=== PATIENT | female | born 1945 | race Caucasian/White ===

== ENCOUNTER 2017-02-28 14:18 | Inpatient (IN) | payer MEDICARE, OTHER ==
[~2017-02-28] VITALS: Ht 157.5 cm; Wt 63.6 kg
[2017-02-28] VITALS (10 sets, daily range): BP systolic 87–105; BP diastolic 52–83
[2017-02-28] MEDS ORDERED: DILTIAZEM DRIP 100 MG in SODIUM CHLORIDE (ADD-VANTAGE) 100 ML IV SCH (16:45)
[2017-02-28] MEDS ORDERED: CATHETER FLUSH 10 ML SYR IV PRN (17:00)
[2017-02-28] MEDS ORDERED: AMIODARONE FOR BOLUS 150 MG in D5W 100 ML IVPB 100 ML IV NR (17:30)
[2017-02-28] MEDS: AMIODARONE IV SOLUTION 200 ML IV SCH ×2 (17:48→23:56)
[2017-02-28] MEDS: CATHETER FLUSH 10 ML SYR IV SCH (22:20)
[2017-02-28] MEDS ORDERED: D5W 100 ML IVPB 100 ML IV ONE (23:13)
[2017-02-28] MEDS ORDERED: AMIODARONE 150 MG/3 ML (CORDARONE) AMP IV ONE (23:13)
[2017-02-28] MEDS ORDERED: AMIODARONE FOR BOLUS 150 MG in D5W 100 ML IVPB 100 ML IV ONE (23:15)
[2017-02-28] MEDS ORDERED: NS IV 1000 ML 1,000 ML IV ONE (23:15)
--- NOTE | 2017-02-28 23:26 | Consultation-Cardiology ---
HPI-Cardiology Cardiology Consultation: Date of Consultation 02/28/17 Date of Admission Attending Physician Mehreen Vanegas DO Admitting Physician Daily Mcneill MD Consulting Physician Alan BARFIELD MD HPI: Chief Complaint: atrial fibrillation This is a 71 year old patient who was transferred from [facility] by Dr Mcneill. She has history of small cell lung cancer s/p radiation and chemo treatment in the past to the chest. She presented with palpitations. She was found to be in atrial fibrillation. She was given a dose of cardizem which resulted in significant improvement of heart rate however the patient went back into AF within 30-40 minutes. She was transferred to our hospital for further management. Review of Systems-Cardiology Review of Systems Constitutional: No As described under HPI, No no symptoms reported, No chills, No fever, No lightheadedness, No malaise, No tiredness, No weight loss, No weight gain, No other Eyes: No As described under HPI, No no symptoms reported, No blindness, No blurred vision, No contact lenses, No drainage, No decreased acuity, No foreign body sensation, No glasses, No inflammation, No pain, No photophobia, No previous injury, No shadows, No tunnel vision, No other, No vision change Ears/Nose/Throat: No As described under HPI, No no symptoms reported, No chronic hearing loss, No epistaxis, No ear discharge, No ear pain, No loose teeth, No mouth pain, No mouth swelling, No nasal drainage, No nose pain, No recent hearing loss, No throat pain, No throat swelling, No ulcerations, No other Respiratory: No no symptoms reported, No As described under HPI, No cough, No orthopnea, No shortness of breath, No SOB with excertion, No SOB at rest, No stridor, No wheezing, No other Cardiovascular: irregular heart rate, palpitations Gastrointestinal: No no symptoms reported, No As described under HPI, No abdomen distended, No abdominal pain, No blood streaked bowels, No constipation , No diarrhea, No difficulty swallowing, No nausea, No poor appetite, No poor fluid intake, No rectal bleeding, No vomiting, No other, No nausea/vomiting/ diarrhea, No stool coloration changes Genitourinary: No no symptoms reported, No As described under HPI, No burning, No dysuria, No discharge, No frequency, No flank pain, No hematuria, No incontinence, No pain, No urgency, No other, No urine frequency changes, No urine coloration changes Musculoskeletal: No no symptoms reported, No As describe under HPI, No back pain, No gout, No joint pain, No joint swelling, No muscle pain, No muscle stiffness, No neck pain, No other Skin: No no symptoms reported, No As described under HPI, No change in color, No change in hair/nails, No dryness, No lesions, No lumps, No rash, No other, No skin related problems, No ulcerations, No rash on exposed areas, No ulcerations on exposed areas Psychiatric/Neurological: No As described under HPI, No anxiety, No depression , No emotional problems, No focal weakness, No headache, No no symptoms reported , No numbness, No other, No pre-existing deficit, No seizure, No syncope, No tingling, No tremors, No weakness CTL-Jweqyv-Ctyctw Hx Patient Social History Alcohol Use: Denies Use Recreational Drug Use: No Smoking Status: Unknown if Ever Smoked Recent Foreign Travel: No Recent Infectious Disease Expo: No Hospitalization with Isolation: Denies Physical Abuse Screen: No Sexual Abuse: No Past Medical History PMH As described under Assessment. Family Medical History Family History: Patient reports no known family medical history. Allergies and Home Medications Allergies Coded Allergies: Penicillins (Verified Allergy, Unknown, 02/28/17) acetaminophen (Verified Allergy, Unknown, 02/28/17) adhesive tape (Verified Allergy, Unknown, 02/28/17) aspirin (Verified Allergy, Unknown, 02/28/17) banana (Verified Allergy, Unknown, 02/28/17) caffeine (Verified Allergy, Unknown, 02/28/17) milk (Verified Allergy, Unknown, 02/28/17) promethazine (Verified Allergy, Unknown, 02/28/17) Physical Exam-Cardiology Physical Exam Vital Signs/I&O Vital Sign - Last 12Hours 02/28/17 02/28/17 02/28/17 02/28/17 15:30 15:45 16:45 17:10 Temp 96.9 96.9 Pulse 140 140 142 Resp 16 10 16 B/P (MAP) 90/52 105/83 99/65 100/76 Pulse Ox 96 97 97 O2 Delivery Room Air Room Air 02/28/17 02/28/17 02/28/17 17:45 18:00 20:00 Pulse 142 88 Resp 16 13 B/P (MAP) 97/70 87/58 Pulse Ox 97 97 O2 Delivery Room Air Room Air Capillary Refill : Constitutional: No appears stated age, No AAO x 3, No apparent distress, No PERRL, No well-developed, No well-nourished, No other HEENT: No PERRL, No normal ENT inspection, No TMs normal, No pharynx normal, No scleral icterus (R), No scleral icterus (L), No pale conjunctivae (R), No pale conjunctivae (L), No photophobia, No TM abnormal (R), No TM abnormal (L), No pharyngeal erythema, No tonsillar exudate, No other, No discharge, No EOMI, No hearing is well preserved, No hard of hearing, No oral hygience is good, No ulceration, No xanthelasmas are seen Neck: No non-tender, No full range of motion, No supple, No normal inspection, No carotid bruit, No limited range of motion, No lymphadenopathy (R), No lymphadenopathy (L), No tender lateral, No tender midline, No thyromegaly, No other, No carotid pulses are 2 + bilaterally, No with good upstrokes Respiratory: No accessory muscle use, No respiratory distress, No chest tender , No chest expansion is symmetric, No chest is bilaterally symmetric, No lungs clear to percussion, No lungs clear to auscultation, No crackles, No rhonchi, No rales, No stridor, No wheezing, No pleural rub, No other Cardiovascular: irregularly irregular, tachycardia, S1 and S2 Gastrointestinal: No tender, No soft, No round, No distended, No pulsatile mass , No organomegaly, No guarding, No rebound, No tenderness, No hernia, No mass, No audible bowel sounds, No abnormal bowel sounds, No abdominal bruits, No spleenomegaly, No other Rectal: deferred Extremities: No normal range of motion, No non-tender, No normal inspection, No pedal edema, No calf tenderness, No normal capillary refill, No pelvis stable , No calf tenderness, No inflammation, No pedal edema, No slow capillary refill , No swelling, No other, No abrasion, No clubbing, No cyanosis, No ecchymosis, No laceration, No no lower extremity edema bilateral, No significant edema, No tenderness, No wound Neurologic/Psychiatric: No perforator operator oil well II-XII nml as tested, No no motor/sensory deficits, No alert, No normal mood/affect, No oriented x 3, No abnormal cerebellar tests, No abnormal perforator operator oil well II-XII, No abnormal gait, No aphasia, No EOM palsy, No facial droop, No motor weakness, No sensory deficit, No depressed affect, No disoriented x 3, No other, No grossly intact, No power is 5/5 both on sides Skin: No normal color, No warm/dry, No cyanosis, No cool, No diaphoresis, No damp, No ecchymosis, No jaundice, No mottled, No pallor, No rash, No tattoos/ piercings, No ulcerations, No rash on exposed areas, No ulcerations on exposed areas, No other ECG Impression ECG Initial ECG Impression: Atrial Fibrillation w/RVR A/P-Cardiology Assessment/Admission Diagnosis atrial fibrillation, small cell cancer Plan IV amiodarone infusion overnight. KIRSTIN has higher risk since patients can have radiation esophagitis the risk of esophageal complications is higher. Anticoagulation is recommended. if the patient does not convert with amiodarone infusion , then will consider KIRSTIN and cardioversion. Thank you for your consultation. Please call me if you have any questions. Tirso Barfield MD, FACP, FACC, FSCAI, FHRS, CCDS Interventional Cardiology Cardiac Electrophysiology Vascular Medicine and Endovascular Interventions Clinical Quality Measures DVT/VTE Risk/Contraindication: Risk Factor Score Per Nursin RFS Level Per Nursing on Admit: 4+=Very High Alan BARFIELD MD February 28, 2017 23:26
[2017-02-28] MEDS: APIXABAN 5 MG (ELIQUIS) TABLET PO SCH (23:54)
[2017-03-01] VITALS (13 sets, daily range): BP systolic 68–123; BP diastolic 43–108
[2017-03-01] MEDS ORDERED: NS IV 1000 ML 1,000 ML IV SCH ×2 (01:15→05:00)
[2017-03-01] MEDS ORDERED: RT-ALBUTEROL SULF 2.5 MG/3 ML PRE-MIX VIAL ONE (02:59)
[2017-03-01] MEDS ORDERED: FUROSEMIDE 40 MG/4 ML INJ (LASIX) IVP ONE (03:00)
[2017-03-01] MEDS ORDERED: RT-ALBUTEROL SULF 2.5 MG/3 ML PRE-MIX VIAL IH SCH (03:15)
[2017-03-01] MEDS ORDERED: RT-ALBUTEROL SULF 2.5 MG/3 ML PRE-MIX VIAL INH ONE (03:15)
[2017-03-01 03:28] LABS: BASOPHILS % (AUTO) 0 % (0-10); EOSINOPHILS % (AUTO) 0 % (0-10); LYMPHOCYTES # (AUTO) 1.5 X 10^3 (1.0-4.0); LYMPHOCYTES % (AUTO) 10 % (12-44); MEAN CORPUSCULAR HEMOGLOBIN 26 PG (25-34); MEAN CORPUSCULAR HGB CONC 32 G/DL (32-36); MEAN CORPUSCULAR VOLUME 83 FL (80-99); MEAN PLATELET VOLUME 10.1 FL (7.4-10.4); MONOCYTES # (AUTO) 1.3 X 10^3 (0.0-1.0); MONOCYTES % (AUTO) 9 % (0-12); NEUTROPHILS # (AUTO) 11.6 X 10^3 (1.8-7.8); NEUTROPHILS % (AUTO) 80 % (42-75); PLATELET COUNT 198 10^3/uL (130-400); RED CELL DISTRIBUTION WIDTH 18.1 % (10.0-14.5); WHITE BLOOD COUNT 14.5 10^3/uL (4.3-11.0)
[2017-03-01 03:37] LABS: ALBUMIN 3.1 G/DL (3.2-4.5)
[2017-03-01 03:44] LABS: CALCIUM 7.8 MG/DL (8.5-10.1); CREATININE SERUM 1.42 MG/DL (0.60-1.30); MAGNESIUM 1.2 MG/DL (1.8-2.4); PHOSPHORUS 3.2 MG/DL (2.3-4.7); POTASSIUM 4.1 MMOL/L (3.6-5.0)
[2017-03-01 03:52] LABS: TROPONIN I < 0.30 NG/ML (<0.30)
[2017-03-01 04:27] LABS: ANISOCYTOSIS SLIGHT; BAND NEUTROPHILS 0 %; BASOPHILS % (MANUAL) 0 %; CRENATED RBC SLIGHT; EOSINOPHILS % (MANUAL) 0 %; LYMPHOCYTES % (MANUAL) 14 %; NEUTROPHILS % (MANUAL) 79 %; POIKILOCYTOSIS SLIGHT
[2017-03-01] MEDS: CATHETER FLUSH 10 ML SYR IV SCH ×3 (05:02→22:34)
[2017-03-01] MEDS ORDERED: POTASSIUM CL 10MEQ/50ML IVPB 50 ML IV SCH (06:00)
[2017-03-01] MEDS ORDERED: KCL 20 MEQ TAB (K-DUR) PO SCH (06:00)
[2017-03-01] MEDS ORDERED: MAGNESIUM 1 GM/100 ML IVPB 100 ML IV SCH (06:00)
--- NOTE | 2017-03-01 06:53 | Pulmonary Consultation ---
History of Present Illness History of Present Illness Date of Consultation 03/01/17 06:48 Date of Admission History of Present Illness 71yo with hx of small cell lung cancer s/p chemo/radiation transferred from [facility] after being found in Afib RVR. I am consulted for ICU management. Allergies and Home Medications Allergies Coded Allergies: Penicillins (Verified Allergy, Unknown, 02/28/17) acetaminophen (Verified Allergy, Unknown, 02/28/17) adhesive tape (Verified Allergy, Unknown, 02/28/17) aspirin (Verified Allergy, Unknown, 02/28/17) banana (Verified Allergy, Unknown, 02/28/17) caffeine (Verified Allergy, Unknown, 02/28/17) milk (Verified Allergy, Unknown, 02/28/17) promethazine (Verified Allergy, Unknown, 02/28/17) Past Gwjmaqn-Icinfv-Rwdolb Hx Patient Social History Alcohol Use: Denies Use Recreational Drug Use: No Smoking Status: Unknown if Ever Smoked Recent Foreign Travel: No Contact w/Someone Who Travel: No Recent Infectious Disease Expo: No Physical Abuse Screen: No Sexual Abuse: No Seasonal Allergies Seasonal Allergies: No Musculoskeletal Musculoskeletal Disorders: Contracture HEENT HEENT Disorders: Cataract Cancer Cancer: Lung Blood Transfusions Adverse Reaction to a Blood Tr: No Family Medical History Family Medial History: Patient reports no known family medical history. Exam Exam Vital Signs Date Time Temp Pulse Resp B/P (MAP) Pulse Ox O2 Delivery O2 Flow Rate FiO2 03/01/17 06:32 97 2.00 03/01/17 06:00 67 16 112/58 98 Nasal Cannula 2.00 03/01/17 05:00 70 16 98/43 95 Nasal Cannula 2.00 03/01/17 04:00 94 2.00 03/01/17 04:00 96.4 68 25 99/52 96 Nasal Cannula 2.00 03/01/17 03:04 90 0.50 03/01/17 03:00 80 19 123/108 87 Nasal Cannula 2.00 03/01/17 02:00 77 37 91/56 91 Nasal Cannula 2.00 03/01/17 01:00 73 23 112/65 96 Nasal Cannula 2.00 03/01/17 01:00 73 03/01/17 00:30 70 23 70/51 95 Nasal Cannula 2.00 03/01/17 00:15 67 24 88/73 100 Room Air 03/01/17 00:00 97 03/01/17 00:00 96.8 65 23 71/51 96 Room Air 02/28/17 23:00 126 11 104/72 89 Room Air 02/28/17 22:00 123 19 100/63 96 Room Air 02/28/17 21:00 112 18 97/67 99 Room Air 02/28/17 20:00 96.3 86 19 95/56 97 Room Air 02/28/17 20:00 97 02/28/17 19:00 66 02/28/17 19:00 66 15 98/53 96 Room Air 02/28/17 18:00 88 13 87/58 Room Air 02/28/17 17:45 142 16 97/70 97 Room Air 02/28/17 17:10 96.9 142 16 100/76 97 02/28/17 16:45 140 10 99/65 97 Room Air 02/28/17 15:45 105/83 02/28/17 15:30 96.9 140 16 90/52 96 Room Air I & O 03/01/17 07:00 Intake Total 1425.5 ml Output Total 280 ml Balance 1145.5 ml Results Lab Laboratory Tests 03/01/17 03:15 Assessment/Plan Assessment/Plan atrial fibrillation, amio, cardiology following small cell cancer -per RN Tx was stopped secondary to pt's poor tolerance Hx CVA - pt is has left sided paralysis dementia- pt is very confused Consider hospice care. will consult hospice for education Clinical Quality Measures DVT/VTE Risk/Contraindication: Risk Factor Score Per Nursin RFS Level Per Nursing on Admit: 4+=Very High MITCHEL PETERSON DO March 01, 2017 06:53
[2017-03-01] MEDS: MAGNESIUM 1 GM/100 ML IVPB 100 ML IV SCH ×2 (08:13→09:38)
--- NOTE | 2017-03-01 08:46 | Diagnostic Imaging Report ---
INDICATION: ICU management. EXAMINATION: Portable chest at 4:54 AM. FINDINGS: The right subclavian Port-A-Cath tip projects over the SVC. The heart size and pulmonary vascularity are normal. There is some increased density at the right lung base that could be infiltrate. IMPRESSION: Possible infiltrate in the right lower lung. Dictated by: Dictated on workstation # [id number]
--- NOTE | 2017-03-01 09:28 | Cardiology Progress Note ---
Cardiology SOAP Progress Note Subjective: shortness of breath Objective: I&O/Vital Signs Vital Sign - Last 12Hours 02/28/17 02/28/17 03/01/17 03/01/17 22:00 23:00 00:00 00:00 Temp 96.8 Pulse 123 126 65 Resp 19 11 23 B/P (MAP) 100/63 104/72 71/51 Pulse Ox 96 89 96 97 O2 Delivery Room Air Room Air Room Air 03/01/17 03/01/17 03/01/17 03/01/17 00:15 00:30 01:00 01:00 Pulse 67 70 73 73 Resp 24 23 23 B/P (MAP) 88/73 70/51 112/65 Pulse Ox 100 95 96 O2 Delivery Room Air Nasal Cannula Nasal Cannula O2 Flow Rate 2.00 2.00 03/01/17 03/01/17 03/01/17 03/01/17 02:00 03:00 03:04 04:00 Temp 96.4 Pulse 77 80 68 Resp 37 19 25 B/P (MAP) 91/56 123/108 99/52 Pulse Ox 91 87 90 96 O2 Delivery Nasal Cannula Nasal Cannula Nasal Cannula O2 Flow Rate 2.00 2.00 0.50 2.00 03/01/17 03/01/17 03/01/17 03/01/17 04:00 05:00 06:00 06:32 Pulse 70 67 Resp 16 16 B/P (MAP) 98/43 112/58 Pulse Ox 94 95 98 97 O2 Delivery Nasal Cannula Nasal Cannula O2 Flow Rate 2.00 2.00 2.00 2.00 03/01/17 07:00 Pulse 74 Intake and Output 03/01/17 00:00 Intake Total 405.5 ml Output Total 185 ml Balance 220.5 ml Weight (Pounds): 140 Weight (Ounces): 5.0 Weight (Calculated Kilograms): [id number] Constitutional: No appears stated age, No AAO x 3, No apparent distress, No PERRL, No well-developed, No well-nourished, No other Respiratory: No accessory muscle use, No respiratory distress, No chest tender , No chest expansion is symmetric, No chest is bilaterally symmetric, No lungs clear to percussion, No lungs clear to auscultation, crackles, rhonchi, No rales , No stridor, No wheezing, No pleural rub, No other Cardiovascular: regular rate-rhythm, tachycardia, S1 and S2 Gastrointestional: No tender, No soft, No round, No distended, No pulsatile mass, No organomegaly, No guarding, No rebound, No tenderness, No hernia, No mass, No audible bowel sounds, No abnormal bowel sounds, No abdominal bruits, No spleenomegaly, No other Extremities: No normal range of motion, No non-tender, No normal inspection, No pedal edema, No calf tenderness, No normal capillary refill, No pelvis stable , No calf tenderness, No inflammation, No pedal edema, No slow capillary refill , No swelling, No other, No abrasion, No clubbing, No cyanosis, No ecchymosis, No laceration, No no lower extremity edema bilateral, No significant edema, No tenderness, No wound Neurologic/Psychiatric: No corporate trainer II-XII nml as tested, No no motor/sensory deficits, No alert, No normal mood/affect, No oriented x 3, No abnormal cerebellar tests, No abnormal corporate trainer II-XII, No abnormal gait, No aphasia, No EOM palsy, No facial droop, No motor weakness, No sensory deficit, No depressed affect, No disoriented x 3, No other, No grossly intact, No power is 5/5 both on sides Skin: No normal color, No warm/dry, No cyanosis, No cool, No diaphoresis, No damp, No ecchymosis, No jaundice, No mottled, No pallor, No rash, No tattoos/ piercings, No ulcerations, No rash on exposed areas, No ulcerations on exposed areas, No other Results/Procedures: Labs Laboratory Tests 03/01/17 03:15: White Blood Count 14.5H, Red Blood Count 4.70, Hemoglobin 12.4, Hematocrit 39, Mean Corpuscular Volume 83, Mean Corpuscular Hemoglobin 26, Mean Corpuscular Hemoglobin Concent 32, Red Cell Distribution Width 18.1H, Platelet Count 198, Mean Platelet Volume 10.1, Neutrophils (%) (Auto) 80H, Lymphocytes (%) (Auto) 10L, Monocytes (%) (Auto) 9, Eosinophils (%) (Auto) 0, Basophils (%) (Auto) 0, Neutrophils # (Auto) 11.6H, Lymphocytes # (Auto) 1.5, Monocytes # (Auto) 1.3H, Eosinophils # (Auto) 0.0, Basophils # (Auto) 0.0, Neutrophils % (Manual) 79, Lymphocytes % (Manual) 14, Monocytes % (Manual) 7, Eosinophils % (Manual) 0, Basophils % (Manual) 0, Band Neutrophils 0, Poikilocytosis SLIGHT, Anisocytosis SLIGHT, Crenated Cell SLIGHT, Sodium Level 134L, Potassium Level 4.1, Chloride Level 104, Carbon Dioxide Level 18L, Anion Gap 12, Blood Urea Nitrogen 26H, Creatinine 1.42H, Estimat Glomerular Filtration Rate 37, BUN/Creatinine Ratio 18 , Glucose Level 166H, Calcium Level 7.8L, Phosphorus Level 3.2, Magnesium Level 1.2L, Troponin I < 0.30, B-Type Natriuretic Peptide 1324.9H, Albumin 3.1L A/P: Assessment/Dx: atrial fibrillation, small cell cancer Plan: Patient converted overnight on Amio infusion. change to Cardizem SR low dose if BP tolerates. Eliquis for stroke prevention. Hypotension, SCLC Overall prognosis poor Thank you for your consultation. Please call me if you have any questions. Tirso Barfield MD, FACP, FACC, FSCAI, FHRS, CCDS Interventional Cardiology Cardiac Electrophysiology Vascular Medicine and Endovascular Interventions Alan BARFIELD MD March 01, 2017 9:28 am
[2017-03-01] MEDS: APIXABAN 5 MG (ELIQUIS) TABLET PO SCH ×2 (10:00→20:36)
[2017-03-01] MEDS: DILTIAZEM 120 MG (CARDIZEM CD) CAP PO SCH (10:00)
[2017-03-01] MEDS ORDERED: ONDANSETRON 4 MG/2 ML (SDV) Z0FRAN IVP PRN (10:45)
[2017-03-01] MEDS ORDERED: SALIVA STIMULANT MOUTH SPRAY (BIOTENE) 1.5 OZ MM PRN (10:45)
[2017-03-01] MEDS ORDERED: BISACODYL 10 MG SUPP (DULCOLAX) PR PRN (10:45)
[2017-03-01] MEDS ORDERED: RT-ALBUTEROL/IPRATROPIUM 3 ML (DUONEB) VIAL INH PRN (10:45)
[2017-03-01] MEDS ORDERED: GLYCOPYRROLATE 0.2 MG/ML (ROBINUL) 2 ML VIAL IV PRN (10:45)
[2017-03-01] MEDS ORDERED: ARTIFICIAL TEARS OINT (LACRI-LUBE) 3.5 GM TUBE OU PRN (10:45)
[2017-03-01] MEDS ORDERED: LORazepam INJ 2 MG/ML (ATIVAN) VIAL IVP PRN (10:45)
[2017-03-01] MEDS ORDERED: ARTIFICAL TEARS 0.4 ML UNIT DOSE (REFRESH PLUS) OU PRN (10:45)
--- NOTE | 2017-03-01 11:21 | History & Physical-Hospitalist ---
HPI History of Present Illness: HPI/Chief Complaint CC: Palpitations HPI: This is a 71 [address] Mcneill'kylee with a history of small cell lung ca in remission for the past 9 years. Pt presented to [facility] with atrial flutter. Cardizem unhelpful so she was transferred here for aggressive rate control. Dr Barfield has been consulted Chart Review: No fever BP 112/58 WC [address] Barfield Review: Pt has converted Dr. 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 Likely hospice enrollment. Pt is not doing well Pt had difficulty breathing so she now has a nasal canula Pt's fluids were stopped this morning because her O2 sat was 80% Pt's daughter is nice, but not may not fully understand how ill the pt is. SW Review: Pt's daughter is reasonable considering I informed her of the end stage process she is currently in Pt was in assisted living in [place] Patient Interview: Pt's breathing difficulty and causes were discussed with pt's daughter and that the pt's prognosis does not look good. Pt's daughter was informed that Dr. Mcneill agrees. Pt's daughter states that her mother found it difficult to breathe this morning Physical exam stable. Lungs sound full. Scribed by Meghna Allan under the direct supervision of Dr. Guillermo. Source: patient, caregiver Exam Limitations: clinical condition Date Seen 03/01/17 Attending Physician Mehreen Guillermo Lisa A MD Referring Physician Date of Admission February 28, 2017 at 16:29 Home Medications & Allergies Home Medications Reviewed patient Home Medication Reconciliation Form Allergies Allergies Coded Allergies Penicillins (Verified Allergy, Unknown, 02/28/17) acetaminophen (Verified Allergy, Unknown, 02/28/17) adhesive tape (Verified Allergy, Unknown, 02/28/17) aspirin (Verified Allergy, Unknown, 02/28/17) banana (Verified Allergy, Unknown, 02/28/17) caffeine (Verified Allergy, Unknown, 02/28/17) milk (Verified Allergy, Unknown, 02/28/17) promethazine (Verified Allergy, Unknown, 02/28/17) Past Tzxlhqs-Fgwefs-Hwmltl Hx Patient Social History Marrital Status: single Employed/Student: retired Alcohol Use: Denies Use Recreational Drug Use: No Smoking Status: Former Smoker Physical Abuse Screen: No Sexual Abuse: No Recent Foreign Travel: No Contact w/other who traveled: No Recent Infectious Disease Expo: No Seasonal Allergies Seasonal Allergies: No Respiratory Hx Respiratory Disorders: Yes Respiratory Disorders: COPD Cardiovascular Hx Cardiovascular Disorders: Yes Cardiac Disorders: Atrial Fibrillation, High Cholesterol, Hypertension Neurological Hx Neurological Disorders: No Gastrointestinal Hx Gastrointestinal Disorders: Yes Gastrointestinal Disorders: Chronic Constipation Musculoskeletal Musculoskeletal Disorders: Arthritis, Contracture HEENT HEENT Disorders: Cataract Cancer Hx Cancer: Yes Cancer: Lung Psychosocial Hx Psychiatric Problems: Yes Behavioral Health Disorders: Anxiety Integumentary HX Skin/Integumentary Disorder: No Blood Transfusions Adverse Reaction to a Blood Tr: No Family Medical History Family Hx: Patient reports no known family medical history. Review of Systems Constitutional: see HPI EENTM: no symptoms reported Respiratory: dyspnea on exertion, short of breath, wheezing Cardiovascular: chest pain, palpitations Gastrointestinal: no symptoms reported Genitourinary: no symptoms reported Musculoskeletal: no symptoms reported Skin: no symptoms reported Psychiatric/Neurological: No Symptoms Reported All Other Systems Reviewed Negative Unless Noted: Yes Physical Exam Physical Exam Vital Signs Vital Sign - Last 12Hours 02/28/17 03/01/17 15:30 00:30 Temp 96.9 Pulse 140 Resp 16 B/P (MAP) 90/52 Pulse Ox 96 O2 Delivery Room Air O2 Flow Rate 2.00 Capillary Refill : General Appearance: WD/WN, Moderate Distress (due to coarse BS) Eyes: Bilateral Eye Normal Inspection, Bilateral Eye PERRL HEENT: PERRL/EOMI, Normal ENT Inspection, Pharynx Normal Neck: Full Range of Motion, Normal Inspection, Non Tender, Supple, Carotid Bruit Respiratory: Chest Non Tender, Accessory Muscle Use, Crackles, Decreased Breath Sounds, Rales, Respiratory Distress, Rhonci, Wheezing Cardiovascular: Regular Rate, Rhythm, No Edema, No Gallop, No JVD, No Murmur, Normal Peripheral Pulses Gastrointestinal: Normal Bowel Sounds, No Organomegaly, No Pulsatile Mass, Non Tender, Soft Back: Normal Inspection, No CVA Tenderness, No Vertebral Tenderness Extremity: Normal Capillary Refill, Normal Inspection, Normal Range of Motion, Non Tender, No Calf Tenderness, No Pedal Edema Neurologic/Psychiatric: Alert, Oriented x3, No Motor/Sensory Deficits, Depressed Affect Skin: Normal Color, Warm/Dry Lymphatic: No Adenopathy Results Results/Procedures Lab Laboratory Tests 03/01/17 03:15 Assessment/Plan Admission Diagnosis Assessment: End-stage congestive heart failure with atrial flutter status post conversion on amiodarone placed on Cardizem for rate control due to comfort measures since palpitations can cause discomfort Small cell lung cancer in remission for the past 9 years but severe COPD end of life status Assessment and Plan Plan: Palliative Care Consult Possible In-pt hospice if does not progress PCP was updated Clinical Quality Measures DVT/VTE Risk/Contraindication: Risk Factor Score Per Nursin RFS Level Per Nursing on Admit: 4+=Very High MEHREEN GUILLERMO DO March 01, 2017 11:21
[2017-03-01] MEDS: morphine INJ 4 MG/ML 1 ML (VIAL/SYRINGE) IV PRN ×2 (13:25→17:36)
[2017-03-02] MEDS: CATHETER FLUSH 10 ML SYR IV SCH ×3 (06:59→20:26)
[2017-03-02] MEDS: DILTIAZEM 120 MG (CARDIZEM CD) CAP PO SCH (08:43)
[2017-03-02] MEDS: APIXABAN 5 MG (ELIQUIS) TABLET PO SCH ×2 (08:43→20:26)
[2017-03-02] MEDS ORDERED: DILT120C63 PO (11:46)
[2017-03-02] MEDS ORDERED: IPRA3AMP INH (11:46)
[2017-03-02] MEDS ORDERED: NORM50IV9 IV (11:46)
[2017-03-02] MEDS ORDERED: APIX5TAB PO (11:46)
[2017-03-02] MEDS ORDERED: MORP4CAR IV (11:46)
[2017-03-02] MEDS ORDERED: ONDA4VIA28 IVP (11:46)
[2017-03-02] MEDS ORDERED: LORA2VIA3 IVP (11:46)
--- NOTE | 2017-03-02 11:55 | Progress Note-Hospitalist ---
Progress Note HPI/CC on Admission CC: Palpitations HPI: This is a 71 [address] 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 Pt presented [place] [facility] with atrial flutter. Cardizem unhelpful so she was transferred here for aggressive rate control. Dr Barfield has been consulted Chart Review: No fever BP 112/58 WC [address] Barfield Review: Pt has converted Dr. 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 Likely hospice enrollment. Pt is not doing well Pt had difficulty breathing so she now has a nasal canula Pt's fluids were stopped this morning because her O2 sat was 80% Pt's daughter is nice, but not may not fully understand how ill the pt is. SW Review: Pt's daughter is reasonable considering I informed her of the end stage process she is currently in Pt was in assisted living in [place] Patient Interview: Pt's breathing difficulty and causes were discussed with pt's daughter and that the pt's prognosis does not look good. Pt's daughter was informed that Dr. Mcneill agrees. Pt's daughter states that her mother found it difficult to breathe this morning Physical exam stable. Lungs sound full. Scribed by Meghna Allan under the direct supervision of Dr. Guillermo. Progress Notes/Assess & Plan Date Seen 03/02/17 Admission Dx/Process Assessment: End-stage congestive heart failure with atrial flutter status post conversion on amiodarone placed on Cardizem for rate control due to comfort measures since palpitations can cause discomfort Small cell lung cancer in remission for the past 9 years but severe COPD end of life status Diagonsis/Assessment & Plan Palliative Care Review: RN reports pt is improving. Pt can talk today. Pt is still a hospice candidate. Patient Interview: Pt daughter asked why pt cath is full if she had kidney failure. Pt family was informed that pt may be having a small improvement but that overall prognosis is not good. Physical exam was stable. Pt denies pain. Pt family asked why pt was red in the face and they were informed that meds she is on may cause flush. Pt family was informed that pt most likely will not recover fully and that pt may be able to be swingbed in [place] to be closer to family and Dr. Mcneill. If pt continues to make improvements the focus of treatment will switch from comfort to more aggressive treatments. Scribed by Shantanu Martinez under the direct supervision of Dr. Guillermo. I did speak to Dr Mcneill and the plan appeared to be move to swing bed and evaluate Hospice care but I was just notified we will send her to [facility] [place] acute care over the weekend and if she improved enough they will become more aggressive with her treatment plan But given the fact that her family member is hospitalized to [facility] and the rest of the family reside in [place] in her primary care provider is Dr. Mcneill we will proceed on with transferred to [facility] to acute care and will plan accordingly. Overall prognosis is extremely poor considering her prior to admission status involved sitting in recliner most of the day and poor quality of life per primary care provider Chronically ill, very lethargic, family at bedside appears end of life status Assessment: End-stage congestive heart failure with atrial flutter status post conversion on amiodarone placed on Cardizem for rate control due to comfort measures since palpitations can cause discomfort Small cell lung cancer in remission for the past 9 years but severe COPD end of life status Plan: Palliative Care Consult has been completed PCP was updated and will send to [facility] [place] on acute care under Dr Mcneill's service and evaluate the plan of care per her wishes. VIRGEN GUILLERMO DO March 02, 2017 11:55
[2017-03-02] MEDS: morphine INJ 4 MG/ML 1 ML (VIAL/SYRINGE) IV PRN (22:24)
[2017-03-03] MEDS: CATHETER FLUSH 10 ML SYR IV SCH (06:23)
[2017-03-03] MEDS: APIXABAN 5 MG (ELIQUIS) TABLET PO SCH (08:16)
[2017-03-03] MEDS: DILTIAZEM 120 MG (CARDIZEM CD) CAP PO SCH (08:16)
--- NOTE | 2017-03-04 13:12 | ECHOCARDIOGRAPHY REPORT ---
DATE OF SERVICE: 03/01/2017 ECHOCARDIOGRAM ATTENDING PHYSICIAN: Mehreen Vanegas DO PRIMARY CARE PHYSICIAN: Dr. Daily Mcneill ORDERING PHYSICIAN: Dr. Marcelo Barfield DIAGNOSES: Shortness of breath, atrial fibrillation. FINDINGS: 1. Atrial fibrillation. 2. Normal left atrium. 3. Normal aortic root. 4. Mild LV systolic dysfunction with an EF of 40-45%. Borderline LVH. Diastolic interventricular septal diameter of 1.1 cm. 5. Severe anterior hypokinesis to akinesis is noted. 6. Normal right heart size and function. 7. No pericardial effusion. 8. Diastolic evaluation was not completed due to atrial fibrillation. 9. IVC is 1.8 cm. VALVULAR STRUCTURE OF THE HEART: There is tfodjajy-kk-ucfeie tricuspid regurgitation with RVSP of 39 mmHg. There is iysbntxe-jh-wlcyyt mitral regurgitation. The mitral regurgitant jet is eccentric in nature. Peak mitral velocity 4.42 meters per second. There is toclflxm-bc-sdxfvt aortic regurgitation with a pressure half time of 302 ms and deceleration time of 1042. Pulmonary valve is not well visualized. CONCLUSION: 1. Mild left ventricular systolic dysfunction with an ejection fraction of 40%. 2. Severe anterior hypokinesis/akinesis noted. 3. Eycpijpf-jk-xsvdnl tricuspid regurgitation. 4. Vzxkifka-hb-zklnah mitral regurgitation. 5. Nqevmozo-xj-iytkeb aortic regurgitation. 6. Jkby-sf-phlttzvn pulmonary hypertension is noted. Job ID: [id number] DocumentID: [id number] Dictated Date: 03/02/2017 22:07:27 Bss Solution Architect Date: 03/04/2017 06:30:01 Dictated By: NOAM BARFIELD MD
--- NOTE | 2017-03-06 10:32 | Physician Query-Heart Failure ---
Physician Query-Heart Failure Query to Physician: Provider's Document Request-Please contact production support engineer listed on document for more information. Dear Provider, We need your assistance to accurately capture the severity of the patients heart failure. Physician participation is requested in all cases of outpatient coder uncertainty to minimize errors in code assignment and to avoid compliance issues. Please select the type of heart failure the patient has below. Clinical Findings: Pro-BNP 1324.9 Ejection Fraction: Above/Equal to 40 Treatment given: Lasix IV Type of Heart Failure: Type of Heart Failure: Diastolic HF (Acute) If you have questions please contact: [employer] Ebs Consultant: Ext: Thank you for your time and cooperation. Clinical New Account Interviewer/[employer] Ebs Consultant This is a permanent part of the medical record MACK PIERRE March 06, 2017 10:32 VIRGEN GUILLERMO DO March 06, 2017 12:57
== END 2017-03-03 11:30 | disposition short-term general hospital (02) | DRG 308 ==
LOC: ICU 16:29 → 4TH 03-01 10:21
PROVIDERS: ADMIT Internal Medicine; ATTEND Internal Medicine
DX: I48.91 Unspecified atrial fibrillation (principal); I11.0 Hypertensive heart disease with heart failure; I50.31 Acute diastolic (congestive) heart failure; I69.354 Hemiplegia and hemiparesis following cerebral infarction affecting left non-dominant side; J44.9 Chronic obstructive pulmonary disease, unspecified; E78.00 Pure hypercholesterolemia, unspecified; F03.90 Unspecified dementia, unspecified severity, without behavioral disturbance, psychotic disturbance, mood disturbance, and anxiety; K59.00 Constipation, unspecified; Z66 Do not resuscitate; Z92.3 Personal history of irradiation; Z92.21 Personal history of antineoplastic chemotherapy; Z85.118 Personal history of other malignant neoplasm of bronchus and lung
CPT/HCPCS: 36415; 71010; 80048; 82040; 83735; 83880; 84100; 84484; 85007; 85027; 93306; 94640; 94664; 94760